=== PATIENT | female | born 1985 | race Two or more races ===

== ENCOUNTER 2016-10-09 21:55 | Emergency (ER) | payer MEDICAID, OTHER ==
[2016-10-09] MEDS ORDERED: IOPAMIDOL 300 (61%) 100 ML VIAL IV ONE (21:56)
[2016-10-10 01:00] LABS: ABSOLUTE NEUTROPHIL COUNT 5.1 K/mm3 (1.8-7.7); BASO # 0.1 K/mm3 (0.0-0.2); BASO % 0.7 % (0.2-1.0); EOS # 0.1 (0.0-0.5); EOS % 1.3 % (0.9-2.9); HEMATOCRIT 40.8 % (37.0-47.0); HEMOGLOBIN 13.5 gm/l (12.0-16.0); IMM NEUT # 0.1 K/mm3 (0-0.2); IMM NEUT% 0.8 % (0-1); LYMPH # 3.5 (1.0-4.8); LYMPH % 36.1 % (15-45); MEAN CELL VOLUME 85.2 fl (81.0-99.0); MEAN CORPUSCULAR HEMOGLOBIN 28.2 pg (27.0-31.0); MEAN CORPUSCULAR HGB CONC 33.1 g/dl (33.0-37.0); MEAN PLATELET VOLUME 9.3 fl (7.4-10.4); MONO # 0.8 (0.0-0.8); MONO % 8.4 % (4-12); NEUT % 52.7 % (43-75); PLATELET COUNT 292 K/mm3 (130-400)
[2016-10-10 01:14] LABS: CALCIUM 9.6 mg/dL (8.6-10.3)
--- NOTE | 2016-10-10 08:13 | CT ---
NECK CT WITH CONTRAST HISTORY: Dysphagia. Following the administration of 80 cc of Isovue-300 intravenous contrast, contiguous axial images were acquired from the frontal sinuses to the level of the sonia. COMPARISON: None. FINDINGS: PHARYNX: There is diffuse prominence of the oropharyngeal soft tissues with resultant effacement of the oral pharyngeal airway. LARYNX: Symmetric appearance, without abnormal enhancing lesion. PAROTID AND SUBMANDIBULAR GLANDS: No dominant focal lesion. THYROID GLAND: No focal lesion noted.. CERVICAL LYMPH NODES: No abnormally enlarged lymph nodes by radiologic size criteria. VISIBLE LUNGS: 4 mm nodule of the right upper lobe, image 71. VISIBLE MEDIASTINUM: No gross mass effect. VISIBLE INTRACRANIAL COMPARTMENT: No gross mass effect or abnormal enhancement. MAJOR VASCULAR STRUCTURES: Grossly unremarkable. OSSEOUS STRUCTURES: No destructive lesions. Visible paranasal sinuses grossly clear. IMPRESSION: 1. Prominence of oropharyngeal soft tissues with effacement of the airway; no deep neck edema or enhancing lesions identified. Please correlate with exam findings to exclude mucosal disease. Correlate for a history of obstructive sleep apnea. 2. No gross cervical adenopathy. 3. 4 mm pulmonary nodule of the right upper lobe, recommend one-year follow-up if the patient has a history of smoking or neoplasm. Preliminary report relayed to the Emergency Medicine medical service by Dr. Peacock on 10/10/2016 at 0225 hours.
== END 2016-10-10 02:59 | disposition home or self-care (01) ==
LOC: ED 21:55
DX: R09.89 Other specified symptoms and signs involving the circulatory and respiratory systems (principal); E03.9 Hypothyroidism, unspecified